=== PATIENT | female | born 1945 | race Caucasian/White ===

== ENCOUNTER 2017-12-30 18:33 | Inpatient (IN) | payer OTHER ==
[~2017-12-30] VITALS: Ht 162.6 cm; Wt 68.2 kg
[2017-12-30 19:11] LABS: ABSOLUTE BASOPHIL COUNT 0 /CUMM (0.0-0.2); ABSOLUTE EOSINOPHIL COUNT 0 /CUMM (0.0-0.7); ABSOLUTE GRANULOCYTE CT 27.2 /CUMM (1.4-6.5); ABSOLUTE MONOCYTE COUNT 0.6 /CUMM (0.10-0.60); BASOPHIL % 0.1 % (0.0-2.0); EOSINOPHIL % 0 % (0-5); GRANULOCYTE % 94.3 % (42.2-75.2); HEMATOCRIT 40.2 % (37-47); MEAN CORPUSCULAR HGB 31.8 PG (27.0-31.0); MEAN CORPUSCULAR HGB CONC 33.1 G/DL (33.0-37.0); MEAN CORPUSCULAR VOLUME 95.9 FL (81.0-99.0); MEAN PLATELET VOLUME 7.6 FL (7.4-10.4); PLATELET COUNT 384 /CUMM (130-400); RBC DISTRIBUTION WIDTH 13.6 % (11.5-14.5); RED BLOOD CELL CT 4.19 /CUMM (4.20-5.40); WHITE BLOOD CELL COUNT 28.8 /CUMM (4.8-10.8)
--- NOTE | 2017-12-30 19:47 | ED GENERAL ADULT ---
History of Present Illness General Chief Complaint: General Adult Stated Complaint: "I THINK IM RUNNING A FEVER" Source: patient Exam Limitations: no limitations Vital Signs & Intake/Output Vital Signs & Intake/Output Vital Signs Date Time Temp Pulse Resp B/P B/P Pulse O2 O2 Flow FiO2 Mean Ox Delivery Rate 12/300 98.1 79 18 94/58 96 Room Air 12/30 2222 98.4 88 16 106/58 97 Room Air 12/30 2206 98.4 12/30 2053 101.1 12/30 2028 99.6 87 18 104/53 98 Room Air 12/30 1853 101.1 98 18 111/67 95 Room Air Room Air ED Intake and Output 12/31 0000 12/30 1200 Intake Total Output Total Balance Patient 150 lb Weight Weight Bed scale Measurement Method Allergies Coded Allergies: azithromycin (From ZITHROMAX Z-GABRIELLE) (Intermediate, DIARRHEA 12/30/17) pseudoephedrine ("LIKE A GIANT DOSE OF CAFFEINE" 12/30/17) Reconcile Medications Carvedilol 6.25 MG TABLET 1 TAB PO BID CHF (Reported) Losartan Potassium 50 MG TABLET 1 TAB PO DAILY HEART FAILURE (Reported) Simvastatin (Simvastatin*) 20 MG TABLET 1 TAB PO QPM HYPERLIPIDEMIA (Reported ) Spironolactone (Aldactone) 25 MG TABLET 0.5 TAB PO DAILY HEART (Reported) Triage Note: TRIAGE: 72 Y/O FEMALE PRESENTS C/O FEVER AT HOME. TEMP IN TRIAGE: 101.1. C/O THRUSH THIS WEEK - USING AN ABX FOR "MY NASAL PASSAGES SO THAT I CAN BREATHE AT BIGHT". Triage Nurses Notes Reviewed? yes Onset: Abrupt Duration: day(s): Timing: recent history Injury Environment: home Severity: moderate Modifying Factors: Improves With: rest. HPI: 72 YO WOMAN chills, nausea, diarrhea x 2 days. "I was shaking all over and couldn't get out of bed all day." She notes diffuse abdominal cramps. She notes that approximately 2 weeks ago she took amoxicillin for a sinus infection. She notes that she has had several watery stools today more than 7. She feels nauseous but is without vomiting. She has no chest pain shortness of breath. Past History Travel History Traveled to [place] past 21 day No Medical History Any Pertinent Medical History? see below for history Neurological: NONE EENT: NONE Cardiovascular: hypertension, hyperlipidemia Respiratory: NONE Gastrointestinal: NONE Hepatic: NONE Renal: NONE Musculoskeletal: NONE Psychiatric: NONE Endocrine: NONE Blood Disorders: NONE Cancer(s): NONE SEED TESTER/Reproductive: NONE Surgical History Surgical History: non-contributory Psychosocial History What is your primary language Italian Tobacco Use: Never used ETOH Use: denies use Illicit Drug Use: denies illicit drug use Family History Hx Contributory? No Review of Systems Review of Systems Constitutional: Denies: see HPI. Physical Exam Physical Exam General Appearance: moderate distress, see below Comments: Review of Systems - except as otherwise noted in HPI Review of Systems Constitutional:no symptoms. EENTM:no symptoms. Respiratory:no symptoms. Cardiovascular:no symptoms. GI:no symptoms. Genitourinary:no symptoms. Musculoskeletal:no symptoms. Skin:no symptoms. Neurological/Psychological:no symptoms. Hematologic/Endocrine:no symptoms. Immunologic/Allergic:no symptoms. All Other Systems: Reviewed and Negative Physical Exam Physical Exam General Appearance: well developed/nourished, no apparent distress Head: atraumatic, normal appearance Eyes: Bilateral: normal appearance. Ears, Nose, Throat: normal pharynx, normal ENT inspection Neck: normal inspection, supple, full range of motion Respiratory: normal breath sounds, chest non-tender, no respiratory distress, quiet respiration, lungs clear Cardiovascular: regular rate/rhythm Gastrointestinal: normal bowel sounds, soft, mild diffuse tenderness to palpation, no organomegaly Back: normal inspection, normal range of motion Extremities: normal inspection, normal capillary refill, normal range of motion, no edema Neurologic/Psych: no motor/sensory deficits, awake, alert, oriented x 3 Skin: intact, normal color, warm/dry Core Measures ACS in differential dx? No CVA/TIA Diagnosis: No Sepsis Present: Yes Sepsis Focused Exam Completed? Yes ED Sepsis Exam Date of Focused Sepsis Exam: 12/31/17 Time of Focused Sepsis Exam: 2200 Sepsis Cardiac Exam: Tachycardia Sepsis Resp Exam: CTA Sepsis Cap Refill Exam: <2 Sec Sepsis Peripheral Pulse Exam: Normal Sepsis Peripheral Pulse Location: Dorsalis Pedis Sepsis Skin Color Exam: Normal for Ethnicity Skin Temp/Moisture Exam: Warm/Dry Progress Differential Diagnoses I considered the following diagnoses in my evaluation of the patient: C. difficile versus gastroenteritis versus other. Patient will switch criteria for sepsis Plan of Care: Orders Procedure Date/time Status Clear Liquid Diet 09/18 B Active Nothing by Mouth 12/31 B Active CBC WITHOUT DIFFERENTIAL 12/31 0600 Active BASIC ELECTROLYTES PLUS BUN&CR 12/31 0600 Active Saline Lock 12/31 0027 Active Pathway - chart 12/31 0027 Active House Staff 12/31 0027 Active VTE Mechanical Prophylaxis 12/31 0027 Active Vital Signs 12/31 0027 Complete MISTAKE 12/31 0027 Active Intake & Output 12/31 0027 Complete Hemoccult 12/31 0027 Active Activity/Ambulation 12/31 0027 Complete Code Status 12/31 0027 Active Clear Liquid Diet 12/30 D Complete Weight 12/30 2242 Complete Vital Signs 12/30 224 Active Teach/Educate 12/30 2241 Active Pain Treatment and Response 12/30 2241 Active Nutritional Intake, Monitor 12/30 2241 Active Isolation 12/30 2241 Active Intake & Output 12/30 2241 Active Patient Care Conference 12/30 2241 Active Activity/Ambulation 12/30 2241 Active Patient Data 12/30 2126 Active Saline Lock 12/31 2115 Active Misc Message 12/31 2115 Active ED Holding Orders 12/31 2115 Active Admit to inpatient 12/30 211 Active Vital Signs 12/30 211 Active Code Status 12/31 2115 Complete CULTURE,STOOL 12/30 2113 Active C.DIFFICILE 12/30 2113 Active Add-on Test (ER Only) 12/30 1948 Active LACTIC ACID 12/30 1903 Complete Add-on Test (ER Only) 12/30 1858 Active EKG 12/30 1858 Active CULTURE,URINE 12/30 185 Active BLOOD CULTURE 12/30 1856 Active URINALYSIS 12/30 1856 Complete TROPONIN LEVEL 12/30 1856 Complete LIPASE 12/30 1856 Complete COMPREHENSIVE METABOLIC PANEL 12/30 1856 Complete CBC WITHOUT DIFFERENTIAL 12/30 1856 Complete AMYLASE 12/30 1856 Complete Intake & Output 12/30 1853 Active Current Medications Sig/Von Start time Last Medication Dose Stop Time Status Admin Atorvastatin Calcium 10 MG 1700 12/31 1700 AC (Lipitor) Enoxaparin Sodium 40 MG DAILY 12/31 0900 AC (Lovenox) Acetaminophen 650 MG Q6P PRN 12/31 0030 AC (Tylenol) Acetaminophen 1,000 MG Q6P PRN 12/31 0030 AC (Ofirmev) Ondansetron HCl 4 MG Q8P PRN 12/31 0030 AC (Zofran) Vancomycin HCl 125 MG Q6 12/31 0030 AC 12/31 0518 Sodium Chloride 1,000 ML ONCE ONE 12/30 2345 AC 12/31 (Normal Saline 0.9%) 12/31 0744 0010 Laboratory Tests 12/30/171941: Urine Color YEL, Urine Clarity CLEAR, Urine pH 6.5, Ur Specific [place] 1.020, Urine Protein TRACE H, Urine Ketones TRACE H, Urine Nitrite NEG, Urine Bilirubin NEG@ICTO, Urine Urobilinogen 0.2, Ur Leukocyte Esterase SMALL H, Ur Microscopic SEDIMENT EXAMINED, Urine RBC RARE, Urine WBC 3-5 H, Ur Epithelial Cells FEW, Urine Bacteria MOD H, Urine Mucus FEW, Urine Hemoglobin NEG, Urine Glucose NEG 12/30/171902: Anion Gap 10, Estimated GFR > 60, BUN/Creatinine Ratio 18.9, Glucose 124 H, Lactic Acid 1.1, Calcium 9.0, Total Bilirubin 0.9, AST 22, ALT 28, Alkaline Phosphatase 82, Troponin I < 0.01, Total Protein 6.9, Albumin 3.9, Globulin 3.0, Albumin/Globulin Ratio 1.3, Amylase 48, Lipase 43, CBC w Diff MAN DIFF ORDERED, RBC 4.19 L, MCV 95.9, MCH 31.8 H, MCHC 33.1, RDW 13.6, MPV 7.6, Gran % 94.3 H , Lymphocytes % 3.5 L, Monocytes % 2.1, Eosinophils % 0, Basophils % 0.1, Absolute Granulocytes 27.2 H, Segmented Neutrophils 82 H, Band Neutrophils 8 H, Absolute Lymphocytes 1.0 L, Lymphocytes 7 L, Monocytes 3, Absolute Monocytes 0.6, Absolute Eosinophils 0, Absolute Basophils 0, Platelet Estimate ADEQUATE, Normocytic RBCs VERIFIED, Normochromic RBCs VERIFIED Microbiology 12/30 2228 STOOL: Clostridium difficile Toxin A & B - RECD 12/30 2228 STOOL: Stool Culture - RECD 12/31 1947 BLOOD: Blood Culture - CAN Cancelled: Cancelled via OE: PER 12/30 1941 URINE ROUT: Urine Culture - RECD 12/30 1902 BLOOD: Blood Culture - RECD Diagnostic Imaging: Viewed by Me: Radiology Read, CT Scan. Discussed w/RAD: Radiology Read, CT Scan. Radiology Impression: PATIENT: ARIELLA CEDILLONIYA Kohler PRESENT AGE: 72 PATIENT ACCOUNT NO: [id number] : 47 LOCATION: [facility] ORDERING PHYSICIAN: Mary ALCANTARA SERVICE DATE: 12/30/17 EXAM TYPE: RAD - XRY-CHEST XRAY, TWO VIEWS EXAMINATION: XR CHEST CLINICAL INFORMATION: Fever. Rule out pneumonia. COMPARISON: None TECHNIQUE: 2 views of the chest were obtained. FINDINGS: No airspace opacities or pleural effusions are seen. The cardiomediastinal silhouette is normal. No acute osseous abnormality is seen. Thoracic kyphosis evident. Surgical clips project over the left upper quadrant of the abdomen. IMPRESSION: Clear lungs. No acute process. DICTATED BY: Federico August MD DATE/TIME DICTATED:12/30/172017 TRAFFIC TECHNICIAN:JUAN MANUEL DATE/TIME TRANSCRIBED:12/30/172017 CONFIDENTIAL, DO NOT COPY WITHOUT APPROPRIATE AUTHORIZATION. <Electronically signed in Other Vendor System> SIGNED BY: Federico August MD 12/30/172021 Initial ED EKG: sinus, no acute changes Departure Departure Disposition: STILL A PATIENT Condition: Stable Clinical Impression Primary Impression: Diarrhea Secondary Impressions: Leukocytosis, Sepsis Referrals: Codey BOLAND,Amber Alcantara (PCP/Family) Departure Forms: Customer Survey General Discharge Information Critical Care Note Critical Care Note Critical Care Time: non-applicable
--- NOTE | 2017-12-30 20:22 | RADIOLOGY REPORT ---
EXAMINATION: XR CHEST CLINICAL INFORMATION: Fever. Rule out pneumonia. COMPARISON: None TECHNIQUE: 2 views of the chest were obtained. FINDINGS: No airspace opacities or pleural effusions are seen. The cardiomediastinal silhouette is normal. No acute osseous abnormality is seen. Thoracic kyphosis evident. Surgical clips project over the left upper quadrant of the abdomen. IMPRESSION: Clear lungs. No acute process.
--- NOTE | 2017-12-30 20:29 | CT SCAN REPORT ---
EXAMINATION: CT ABDOMEN AND PELVIS WITHOUT CONTRAST CLINICAL INFORMATION: Right-sided abdominal pain COMPARISON: None TECHNIQUE: Multidetector volumetric imaging was performed from the superior aspect of the liver through the pubic symphysis. Sagittal and coronal reformatted images were obtained on the technologist's workstation. DLP: 271.70 mGy-cm FINDINGS: LUNG BASES: The visualized lung bases are unremarkable. LIVER, GALLBLADDER, AND BILIARY TREE: The liver is normal in size, shape, and attenuation. No focal hepatic lesion or biliary ductal dilatation is present. The gallbladder is unremarkable with no evidence of radiopaque gallstones, gallbladder wall thickening, or obvious pericholecystic inflammatory changes. PANCREAS: The pancreas is not well seen and may be atrophic. SPLEEN: Status post splenectomy. ADRENAL GLANDS: Unremarkable. KIDNEYS AND URETERS: The kidneys are normal in size, shape, and attenuation. No hydronephrosis, hydroureter, or calculi seen. No perinephric stranding. BLADDER: Decompressed and not well seen. GASTROINTESTINAL TRACT: Much of the colon is decompressed and featureless. The appendix is not seen. There are no specific pericecal inflammatory changes to suggest acute appendicitis. ABDOMINAL WALL: No significant hernia is appreciated. LYMPH NODES: Normal. VASCULAR: Atherosclerosis abdominal aorta without evidence of aneurysm. PELVIC VISCERA: Diffuse enlargement of the uterus. The female pelvis is not well evaluated with CT, especially noncontrast CT. OSSEOUS STRUCTURES: No evidence of acute or suspicious osseous abnormality. Degenerative changes of the spine. IMPRESSION: 1. No evidence of acute abnormality within the abdomen or pelvis. 2. Much of the colon is decompressed which limits evaluation. The colon appears rather featureless. Clinical correlation for possible inflammatory bowel disease is requested. 3. The appendix is not seen but there are no pericecal inflammatory changes to suggest acute appendicitis. 4. Diffuse enlargement of the uterus. The female pelvis is poorly evaluated with CT and clinical correlation is requested with consideration for pelvic ultrasound if appropriate based upon clinical assessment. 5. Splenectomy. 6. The pancreas is not well seen, possibly due to atrophy.
--- NOTE | 2017-12-30 21:29 | History & Physical ---
Augustine Sosa 12/30/172128: General Information and HPI MD Statement: I have seen and personally examined ISHMAEL CEDILLO and documented this H&P. The patient is a 72 year old F who presented with a patient stated chief complaint of [diarrhea with fever & chills]. Source of Information: patient Exam Limitations: no limitations History of Present Illness: 72 year old female with history of non-hodkings lymphoma, HTN, HLD, CHF presents to the ED with diarrhea, fever & chills. The patient had recently been put on a 2-week course of Augmentin for recurrent sinusitis, which she finished approximately one week prior to presentation. She first noticed diarrhea during this recent antibiotic course, but she took a probiotic and it improved. Starting yesterday she noticed recurrence and worsening of her diarrhea, which was described as malodorous, non-bloody, brown and watery. She denied nausea or vomiting. In addition, she was feverish with chills the night prior to admission and felt light-headed the morning before coming to the hospital. She denied recent travel, sick contacts at home, chest pain, shortness of breath, dysuria or hematuria. 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 Denies: diaphoresis, weakness, unexplained weight loss. Cardiovascular: Denies: chest pain, orthopena, palpitations, peripheral edema. Respiratory: Denies: cough, short of breath, sputum production, wheezing. GI: Reports: diarrhea. Denies: abdominal pain, distention, bowel incontinence, melena, nausea, bloody stool, vomiting. Genitourinary: Denies: dysuria, frequency, hematuria. Post Menopausal: Yes Exam & Diagnostic Data Last 24 Hrs of Vital Signs/I&O Vital Signs Date Time Temp Pulse Resp B/P B/P Pulse O2 O2 Flow FiO2 Mean Ox Delivery Rate 12/30 2250 98.1 79 18 94/58 96 Room Air 12/30 2222 98.4 88 16 106/58 97 Room Air 12/30 2206 98.4 12/30 2053 101.1 12/30 2028 99.6 87 18 104/53 98 Room Air 12/30 1853 101.1 98 18 111/67 95 Room Air Room Air Intake & Output 12/31 0800 12/31 0000 12/30 1600 Intake Total Output Total Balance Patient 68.209 kg Weight Weight Bed scale Measurement Method Physical Exam General Appearance Alert, Oriented X3, Cooperative, No Acute Distress Skin No Rashes, No Breakdown, No Significant Lesion Skin Temp/Moisture Exam: Warm/Dry Sepsis Skin Exam (color): Normal for Ethnicity HEENT Atraumatic, Mucous Membr. moist/pink Cardiovascular Regular Rate, Normal S1, Normal S2, No Murmurs Lungs Clear to Auscultation, Normal Air Movement Abdomen Normal Bowel Sounds, Soft, No Tenderness Neurological Normal Speech, Strength at 5/5 X4 Ext, Normal Tone, Sensation Intact Extremities No Clubbing, No Cyanosis, No Edema Sepsis Peripheral Pulse Location: Dorsalis Pedis Sepsis Peripheral Pulse Exam: Bounding Sepsis Cap Refill Exam: <2 Sec Last 24 Hrs of Labs/Damian: Laboratory Tests 12/30/171941: Urine Color YEL, Urine Clarity CLEAR, Urine pH 6.5, Ur Specific [place] 1.020, Urine Protein TRACE H, Urine Ketones TRACE H, Urine Nitrite NEG, Urine Bilirubin NEG@ICTO, Urine Urobilinogen 0.2, Ur Leukocyte Esterase SMALL H, Ur Microscopic SEDIMENT EXAMINED, Urine RBC RARE, Urine WBC 3-5 H, Ur Epithelial Cells FEW, Urine Bacteria MOD H, Urine Mucus FEW, Urine Hemoglobin NEG, Urine Glucose NEG 12/30/17 190: Anion Gap 10, Estimated GFR > 60, BUN/Creatinine Ratio 18.9, Glucose 124 H, Lactic Acid 1.1, Calcium 9.0, Total Bilirubin 0.9, AST 22, ALT 28, Alkaline Phosphatase 82, Troponin I < 0.01, Total Protein 6.9, Albumin 3.9, Globulin 3.0, Albumin/Globulin Ratio 1.3, Amylase 48, Lipase 43, CBC w Diff MAN DIFF ORDERED, RBC 4.19 L, MCV 95.9, MCH 31.8 H, MCHC 33.1, RDW 13.6, MPV 7.6, Gran % 94.3 H , Lymphocytes % 3.5 L, Monocytes % 2.1, Eosinophils % 0, Basophils % 0.1, Absolute Granulocytes 27.2 H, Segmented Neutrophils 82 H, Band Neutrophils 8 H, Absolute Lymphocytes 1.0 L, Lymphocytes 7 L, Monocytes 3, Absolute Monocytes 0.6, Absolute Eosinophils 0, Absolute Basophils 0, Platelet Estimate ADEQUATE, Normocytic RBCs VERIFIED, Normochromic RBCs VERIFIED Microbiology 12/30 2228 STOOL: Clostridium difficile Toxin A & B - RECD 12/30 2228 STOOL: Stool Culture - RECD 12/31 1947 BLOOD: Blood Culture - CAN Cancelled: Cancelled via OE: PER 12/30 1941 URINE ROUT: Urine Culture - RECD 12/30 1902 BLOOD: Blood Culture - RECD Assessment/Plan Assessment: 72 year old female with recent antibiotic use presents with two days of non- bloody diarrhea, chills and fever of 101.1F, with leukocytosis of 28.8. The patient's blood pressure was also noted to be 94/58 upon admission, which is significantly lower than her baseline per the patient. These findings are concerning for a septic presentation, in the clinical context of post-antibiotic diarrhea, clostridium difficile should be suspected. CT abdomen pelvis: Much of the colon is decompressed which limits evaluation. The colon appears rather featureless. Clinical correlation for possible inflammatory bowel disease is requested. Problems: 1. Sepsis 2. Likely C. diff colitis Plan: -Admit the patient to General Medicine -C. diff stool & stool culture -Vancomycin 125mg PO Q6H -Normal Saline IV 125mL/hr Full code Clear liquid diet ALPS & Lovenox DVT ppx As Ranked By This Provider Problem List: 1. C. difficile diarrhea Core Measures/Misc (12/31) Acute Coronary Syndrome ACS Diagnosis: No Congestive Heart Failure Congestive Heart Failure Diagnosis Yes Cerebrovascular Accident CVA/TIA Diagnosis: No VTE (View Protocol) VTE Risk Factors Age>40 No Mechanical VTE Prophylaxis d/t N/A MechProphylax Ordered No VTE Pharm Prophylaxis d/t NA PharmProphylax ordered Sepsis (View protocol) Sepsis Present: Yes If YES complete Sepsis Event Note If YES complete Sepsis Event Note Marcelo Tejada MD 12/31/17 0207: General Information and HPI MD Statement: I have seen and personally examined NGUYENISHMAEL and documented this H&P. The patient is a 72 year old F who presented with a patient stated chief complaint of []. Allergies/Medications Allergies: Coded Allergies: azithromycin (From ZITHROMAX Z-GABRIELLE) (Intermediate, DIARRHEA 12/30/17) pseudoephedrine ("LIKE A GIANT DOSE OF CAFFEINE" 12/30/17) Home Med list Carvedilol 6.25 MG TABLET 1 TAB PO BID CHF (Reported) Losartan Potassium 50 MG TABLET 1 TAB PO DAILY HEART FAILURE (Reported) Simvastatin (Simvastatin*) 20 MG TABLET 1 TAB PO QPM HYPERLIPIDEMIA (Reported ) Spironolactone (Aldactone) 25 MG TABLET 0.5 TAB PO DAILY HEART (Reported) Past History Medical History Cardiovascular: hypertension, hyperlipidemia Past Family/Social History Psychosocial History Smoking Status: Never Smoked ETOH Use: denies use Review of Systems Review of Systems Constitutional: Reports: see HPI. Exam & Diagnostic Data Last 24 Hrs of Vital Signs/I&O Vital Signs Date Time Temp Pulse Resp B/P B/P Pulse O2 O2 Flow FiO2 Mean Ox Delivery Rate 12/30 2250 98.1 79 18 94/58 96 Room Air 12/30 2222 98.4 88 16 106/58 97 Room Air 12/30 2206 98.4 12/30 2053 101.1 12/30 2028 99.6 87 18 104/53 98 Room Air 12/30 1853 101.1 98 18 111/67 95 Room Air Room Air Intake & Output 12/31 0800 12/31 0000 12/30 1600 Intake Total Output Total Balance Patient 150 lb Weight Weight Bed scale Measurement Method Physical Exam General Appearance Alert, Oriented X3, Cooperative, No Acute Distress Skin No Rashes, No Breakdown, No Significant Lesion Skin Temp/Moisture Exam: Warm/Dry Sepsis Skin Exam (color): Normal for Ethnicity HEENT Atraumatic, PERRLA, EOMI Neck Supple, No JVD, No thryomegaly Lymphatic Axillary nl, Cervical nl Cardiovascular Regular Rate, Normal S1, Normal S2, No Murmurs Lungs Clear to Auscultation, Normal Air Movement Abdomen Normal Bowel Sounds, Soft, No Tenderness Sepsis Peripheral Pulse Location: Dorsalis Pedis Sepsis Peripheral Pulse Exam: Normal Sepsis Cap Refill Exam: <2 Sec Last 24 Hrs of Labs/Damian: Laboratory Tests 12/30/171941: Urine Color YEL, Urine Clarity CLEAR, Urine pH 6.5, Ur Specific [place] 1.020, Urine Protein TRACE H, Urine Ketones TRACE H, Urine Nitrite NEG, Urine Bilirubin NEG@ICTO, Urine Urobilinogen 0.2, Ur Leukocyte Esterase SMALL H, Ur Microscopic SEDIMENT EXAMINED, Urine RBC RARE, Urine WBC 3-5 H, Ur Epithelial Cells FEW, Urine Bacteria MOD H, Urine Mucus FEW, Urine Hemoglobin NEG, Urine Glucose NEG 12/30/171902: Anion Gap 10, Estimated GFR > 60, BUN/Creatinine Ratio 18.9, Glucose 124 H, Lactic Acid 1.1, Calcium 9.0, Total Bilirubin 0.9, AST 22, ALT 28, Alkaline Phosphatase 82, Troponin I < 0.01, Total Protein 6.9, Albumin 3.9, Globulin 3.0, Albumin/Globulin Ratio 1.3, Amylase 48, Lipase 43, CBC w Diff MAN DIFF ORDERED, RBC 4.19 L, MCV 95.9, MCH 31.8 H, MCHC 33.1, RDW 13.6, MPV 7.6, Gran % 94.3 H , Lymphocytes % 3.5 L, Monocytes % 2.1, Eosinophils % 0, Basophils % 0.1, Absolute Granulocytes 27.2 H, Segmented Neutrophils 82 H, Band Neutrophils 8 H, Absolute Lymphocytes 1.0 L, Lymphocytes 7 L, Monocytes 3, Absolute Monocytes 0.6, Absolute Eosinophils 0, Absolute Basophils 0, Platelet Estimate ADEQUATE, Normocytic RBCs VERIFIED, Normochromic RBCs VERIFIED Microbiology 12/30 2228 STOOL: Clostridium difficile Toxin A & B - RECD 12/30 2228 STOOL: Stool Culture - RECD 12/31 1947 BLOOD: Blood Culture - CAN Cancelled: Cancelled via OE: PER 12/30 1941 URINE ROUT: Urine Culture - RECD 12/30 1902 BLOOD: Blood Culture - RECD Core Measures/Misc (12/31) Sepsis (View protocol) If YES complete Sepsis Event Note If YES complete Sepsis Event Note Attending MD Review Statement Attending Statement Attending MD Statement: examined this patient, discuss w/resident/PA/WINE STEWARD, agreed w/resident/PA/WINE STEWARD, reviewed EMR data (avail) Attending Assessment/Plan: This patient is a 72 year old female with a significant past medical history for non-Hodgkin lymphoma, HTN, HLD, and CHF who presents to the ED with diarrhea, fever and chills. The patient had recently been treated with a 2-week course of Augmentin for recurrent sinusitis, which she finished approximately one week prior to presentation. She first noticed diarrhea during this recent antibiotic course, but she took a probiotic and it improved. Starting yesterday she noticed recurrence and worsening of her diarrhea, which was described as malodorous, non -bloody, brown and watery. She denied nausea or vomiting. In addition, she was feverish with chills the night prior to admission. Upon evaluation in the emergency department she was found to have a temperature of 101.1, vital signs stable, white blood count elevated to 28.8 (left shift with 8 Bands), slight hyponatremia at 134, chest x-ray without any acute process, and CT scan of the abdomen without contrast did not demonstrate colitis. The patient will be admitted to the hospital for acute diarrheal illness likely secondary to bacterial colitis/C. difficile. The features are suggestive enough to start empiric therapy and will start the patient on oral vancomycin. Gentle hydration and close follow-up. She is a full code. Livier Roberts MD 12/31/17 0216: Core Measures/Misc (12/31) Sepsis (View protocol) If YES complete Sepsis Event Note If YES complete Sepsis Event Note Resident Review Statement Resident Statement: examined this patient, discussed with academic intern, agreed with academic intern, reviewed EMR data (avail), amended to note Other Findings: The patient is a 72-year-old female with past medical history of non-Hodgkin's lymphoma status post splenectomy, hypertension, hyperlipidemia, deviated septum, sinus infections presenting this admission with chief complaint of fever, chills , diarrhea. Patient reports a one-day history of diarrhea. States that one night prior to admission she started experiencing severe chills. Reports on the morning morning of admission she started having loose watery foul-smelling diarrhea with a brownish color. Reports having 5-6 bowel movements over the course of the day until 5 PM when her came home and brought her to the ED. Patient reports 2 more bowel movements since arriving. Denies any melena or bright red blood per rectum. Patient reports associated abdominal tenderness in the lower right and left quadrants. Reports some mild nausea however no vomiting or hematochezia. Reports feeling feverish and in triage patient had a temperature of 101.1. Patient reported some dizziness and lightheadedness. Denies any chest pain, shortness breath, constipation, dysuria/hematuria. Patient has a history of recurrent sinusitis and is planned to undergo surgery to correct her sinuses as well as a deviated septum with her ENT physician. She was recently given a two-week course of Augmentin which she finished approximately one week prior to admission. Reports that while she was taking the antibiotic she started experiencing similar diarrhea however reports that after taking probiotics that resolved. Patient denies any sick contacts, recent travel. Denies eating anything out of the ordinary. Patient lives with her and reports that he is not ill. Patient states that she had a tick bite 3 months prior to this admission however no medications were given at that time. Past medical history and past surgical history as above Social history: Denies smoking, alcohol use, illicit drug use. Lives with her . 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 Allergies/adverse drug side effects: Pseudoephedrine (reports chest pain, palpitations), azithromycin (diarrhea) Patient in the ED received Tylenol 1 g IV 1, Toradol 30 mg IV 1, normal saline per sepsis protocol, Flagyl IV Vitals: MAXIMUM TEMPERATURE 101.1, heart rate 87-98, respiration rate 18, blood pressure 104/53, saturating between 95 and 98% on room air Gen.: Resting comfortably in bed in no acute distress HEENT: Extraocular movements intact, moist mucosal membranes, PERRLA Lungs: Clear to auscultation bilaterally CVS: Regular rate and rhythm, S1 and S2 heart sounds, no murmurs appreciated Abdomen: Soft nontender nondistended, positive bowel sounds Extremities: Pulses palpable, no lower extremity edema, cyanosis, clubbing. Labs and imaging as above Patient is a 72-year-old female with past medical history significant for non- Hodgkin's lymphoma status post splenectomy and recurrent sinus infections with recent antibiotic use presenting with an acute diarrheal illness with leukocytosis and bandemia and findings indicative of clostridium difficile infection. Abd CT did not show colitis however it was done without constrast. Other possibilities include viral gastroenteritis or other bacterial or parasitic infections. Of note patient is immunocompromised in setting of splenectomy which raises concerns for risk of severe infection with encapsulated bacteria such as salmonella. 1. Sepsis secondary to acute diarrheal illness likely Clostridium difficile 2. Mild hyponatremia 3. Chronic conditions: None was consulted, status post splenectomy, hypertension, hyperlipidemia, CHF (last reported ejection fraction per patient is 50%) Plan: - Admit to gen med - Contact isolation precautions - IV fluid hydration - Trend vitals and WBC - Monitor electrolytes and replete as needed - Follow up c.dif toxin and stool cultures - Start PO Vancomycin 125mg q6h for presumed C.dif - If patient's symptoms do not improve may consider repeat CT Abd/Pelvis as previous imaging was done without contrast. Patient reports no allergy/adverse reaction to contrast. - Antihypertensive medications held at this time due to borderline low bp - Continue simvistatin - Diet: Clear liquid diet, advance as tolerated - Code: Full code - DVT PPx: ALPS, Lovenox
[2017-12-30 22:50] VITALS: BP 94/58
--- NOTE | 2017-12-30 23:43 | Sepsis Event Note ---
Sepsis Event Note Severe Sepsis Severe Sepsis Present: No Septic Shock Septic Shock Present: No Event Note Event Note: S- Patient seen in the ED to be admitted to general medicine, she had a fever of 101.1 in triage in the ED, a leukocytosis of 28.8, and borderline hypotensive at 104/53--much lower than the patient's baseline. B- The patient presented with diarrhea, fever & chills after recent antibiotic use, suggesting an infectious diarrhea. The patient also received Flagyl 500mg PO in the ED. A- Based on this patient's fever and leukocytosis in the setting of watery diarrhea and recent antibiotic use, C. diff colitis is a possible source of sepsis. R- Admit the patient to general medicine, begin Normal saline 125mL/hr, begin Vancomycin 125mg PO Q6h, continue to closely monitor the patient's temperature, blood pressure and heart rate, as well as any changes in her diarrhea or abdominal exam. Sepsis Focused Exam Sepsis Cardiac Exam: Regular Rate/Rhythm Sepsis Resp Exam: CTA Sepsis Cap Refill Exam: <2 Sec Sepsis Peripheral Pulse Exam: Bounding Sepsis Peripheral Pulse Location: Dorsalis Pedis Sepsis Skin Exam (color): Normal for Ethnicity Skin Temp/Moisture Exam: Warm/Dry
[2017-12-31] MEDS ORDERED: LOSARTAN POTASS50 M1 PO (00:30)
[2017-12-31] MEDS ORDERED: CARVEDILOL6.25 M1 PO (00:30)
[2017-12-31] MEDS ORDERED: SIMVASTATIN20 M2 PO (00:30)
[2017-12-31] MEDS ORDERED: ALDACTONE25 MG PO (00:31)
--- NOTE | 2017-12-31 07:29 | PN- Housestaff ---
Elke Coronado 12/31/17 0728: Subjective Follow-up For: Severe diarrhea Subjective: Patient was seen and examined at bedside. She states she still has diarrhea every 2 hours and feels much too dehydrated. She reports that the diarrhea is watery and green. The She denies fever, chills, nausea, vomiting. Review of Systems Constitutional: Reports: see HPI. Objective Last 24 Hrs of Vital Signs/I&O Vital Signs Date Time Temp Pulse Resp B/P B/P Pulse O2 O2 Flow FiO2 Mean Ox Delivery Rate 12/30 2250 98.1 79 18 94/58 96 Room Air 12/30 2222 98.4 88 16 106/58 97 Room Air 12/30 2206 98.4 12/30 2054 101.1 12/30 2028 99.6 87 18 104/53 98 Room Air 12/30 1853 101.1 98 18 111/67 95 Room Air Room Air Intake & Output 12/31 1600 12/31 0800 12/31 0000 Intake Total 1240 Output Total 500 Balance 740 Intake, IV 1000 Intake, Oral 240 Number 3 Bowel Movements Output, Stool 500 Patient 150 lb Weight Weight Bed scale Measurement Method Physical Exam General Appearance: Alert, Oriented X3, Cooperative, No Acute Distress Neck: Supple Cardiovascular: Regular Rate, Normal S1, Normal S2 Lungs: Clear to Auscultation Abdomen: Normal Bowel Sounds, Soft, diffuse tenderness all over the abdomen Vascular: Normal Pulses Assessment/Plan Assessment: 72 year old female with recent antibiotic is admitted to the [facility] service with cheif complaint of non-bloody diarrhea, chills and fever of 101.1F, with leukocytosis of 28.8. The patient's blood pressure was also noted to be 94/58 upon admission, which is significantly lower than her baseline per the patient. These findings are concerning for a septic presentation, in the clinical context of post-antibiotic diarrhea, clostridium difficile should be suspected. CT abdomen pelvis: Much of the colon is decompressed which limits evaluation. The colon appears rather featureless. Clinical correlation for possible inflammatory bowel disease is requested. Problems: 1. Sepsis 2. Likely C. diff colitis Plan: 1. WBC: 26.1 at present 2. Patient was afebrile overnight 3. Patient has recent history of Augemntin use 3. C.diff cultures pending, Blood cultures pending, would follow up 4. We would continue treating her with Vancomycin 125mg PO 5. Patient is on clear liquid diet. 6. She does show signs of dehydration. We started her on maintainence fluids @ 75cc/hr. DVT prophylaxis Code status: Full code Problem List: 1. Sepsis 2. Leukocytosis 3. Diarrhea 4. C. difficile diarrhea Pain Ratin Pain Location: diffuse abdominal tenderness Pain Goal: Remain pain free Pain Plan: pathway Tomorrow's Labs & Rationales: cbc and bep Tripp Garrido 12/31/17 1153: Attending MD Review Statement Attending Statement Attending MD Statement: examined this patient, discuss w/resident/PA/[employer] LAYUP LINE CORE LAYER, agreed w/resident/PA/[employer] CORE LAYER, discussed with family, reviewed EMR data (avail), discussed with nursing, discussed with case mgmt, reviewed images, amended to note Attending Assessment/Plan: 72 year old female with a significant past medical history for non-Hodgkin lymphoma, HTN, HLD, and CHF who presents to the ED with diarrhea, fever and chills. The patient had recently been treated with a 2-week course of Augmentin for recurrent sinusitis, which she finished approximately one week prior to presentation. CT abd/pelvis noted. Overnight patient had c/o abdominal pain diffuse 5/10 with lower abdominal tenderness. Still reports loose stools. Hemodynamically stable. BP 106/58. Patient with possible C diff colitis. Start empiric therapy on oral vancomycin. Continue Gentle hydration and close follow-up. She is a full code.
[2017-12-31 08:39] LABS: ABSOLUTE BASOPHIL COUNT 0 /CUMM (0.0-0.2); ABSOLUTE EOSINOPHIL COUNT 0 /CUMM (0.0-0.7); ABSOLUTE GRANULOCYTE CT 23.1 /CUMM (1.4-6.5); ABSOLUTE LYMPH COUNT 1.3 /CUMM (1.2-3.4); ABSOLUTE MONOCYTE COUNT 1.6 /CUMM (0.10-0.60); BASOPHIL % 0.2 % (0.0-2.0); EOSINOPHIL % 0.1 % (0-5); GRANULOCYTE % 88.6 % (42.2-75.2); HEMATOCRIT 35.8 % (37-47); MEAN CORPUSCULAR HGB 32.6 PG (27.0-31.0); MEAN CORPUSCULAR HGB CONC 33.8 G/DL (33.0-37.0); MEAN CORPUSCULAR VOLUME 96.3 FL (81.0-99.0); MEAN PLATELET VOLUME 8.5 FL (7.4-10.4); PLATELET COUNT 313 /CUMM (130-400); RBC DISTRIBUTION WIDTH 13.7 % (11.5-14.5); RED BLOOD CELL CT 3.72 /CUMM (4.20-5.40); WHITE BLOOD CELL COUNT 26.1 /CUMM (4.8-10.8)
[2017-12-31 14:16] VITALS: BP 110/58
[2017-12-31 21:12] VITALS: BP 112/68
[2018-01-01 06:20] VITALS: BP 135/73
--- NOTE | 2018-01-01 07:27 | PN- Housestaff ---
Elke Coronado 01/01/18 0727: Subjective Follow-up For: Diarrhea Subjective: Patient was seen and examined at bedside. 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 She is much improved clinically. However, she continues to have diarrhea every 2 hours. She states that the stool is a little more formed since yesterday. She also states her hands feel swollen since yesterday. Her heart failure medications were being held given her hypotension at presentation. Review of Systems Constitutional: Reports: see HPI. Objective Last 24 Hrs of Vital Signs/I&O Vital Signs Date Time Temp Pulse Resp B/P B/P Pulse O2 O2 Flow FiO2 Mean Ox Delivery Rate 01/01 1121 70 118/74 01/01 0620 98.1 76 18 135/73 97 12/31 2112 98.4 84 18 112/68 96 Room Air 12/31 1416 100.1 84 18 110/58 94 Room Air Intake & Output 01/01 1600 01/01 0800 01/01 0000 Intake Total 240 Output Total Balance 240 Intake, Oral 240 Number 2 2 Bowel Movements Physical Exam General Appearance: Alert, Oriented X3, Cooperative, No Acute Distress Neck: Supple Cardiovascular: Regular Rate, Normal S1, Normal S2, No Murmurs Lungs: Clear to Auscultation Abdomen: Normal Bowel Sounds, Soft, No Tenderness, No Hepatospenomegaly Extremities: No Edema, Normal Pulses Vascular: Normal Pulses Assessment/Plan Assessment: 72 year old female with PMH of CHF recent antibiotic is admitted to the [facility] service with cheif complaint of non-bloody diarrhea, chills and fever of 101.1F , with leukocytosis of 28.8. The patient's blood pressure was also noted to be 94/58 upon admission, which is significantly lower than her baseline per the patient. These findings are concerning for a septic presentation, in the clinical context of post-antibiotic diarrhea, clostridium difficile should be suspected. Her CHF medications were held at the time of admission given her hypotension. She reported that her hands and feet feel "tight" today. CT abdomen pelvis: Much of the colon is decompressed which limits evaluation. The colon appears rather featureless. Clinical correlation for possible inflammatory bowel disease is requested. Problems: 1. Sepsis 2. Likely C. diff colitis Plan: 1. WBC: 18.1 at present 2. Patient was afebrile overnight 3. Patient has recent history of Augemntin use 3. C.diff cultures negative, Blood cultures pending, would follow up 4. We would continue treating her with Vancomycin 125mg PO 5. PCR for C.diff sent. Will follow up on results 6. Diet advanced to full liquids. Patient tolerating well. 7. Fluids discontinued 8. Carvedilol, Spironolactone were re-started given patient is not hypotensive anymore DVT prophylaxis Code status: Full code Problem List: 1. Sepsis 2. Leukocytosis 3. Diarrhea 4. C. difficile diarrhea 5. History of CHF (congestive heart failure) Pain Ratin Pain Location: none Pain Goal: Remain pain free Pain Plan: none Tomorrow's Labs & Rationales: cbc and bep RadhikaManuel majorsissy 01/01/18 1019: Attending MD Review Statement Attending Statement Attending MD Statement: examined this patient, discuss w/resident/PA/DOOR TENDER, agreed w/resident/PA/DOOR TENDER, discussed with family, reviewed EMR data (avail), discussed with nursing, discussed with case mgmt, reviewed images, amended to note Attending Assessment/Plan: 72 year old female with a significant past medical history for non-Hodgkin lymphoma, HTN, HLD, and CHF who presents to the ED with diarrhea, fever and chills. The patient had recently been treated with a 2-week course of Augmentin for recurrent sinusitis, which she finished approximately one week prior to presentation. CT abd/pelvis noted. Overnight patient feels better than admission but still continue to report multiple bowel movements. Hemodynamically stable. leukocytosis with mild improvement. Follow WBC from today. Patient with possible C diff colitis. c/w empiric therapy on oral vancomycin. ID consult. Hyponatremia resolved. H/o CHF cautions use of fluids, resume home meds. Can give diureitcs and b blcoker not appearing in sepsis. gi/dvt prophyalxis full code
[2018-01-01 10:01] LABS: ABSOLUTE BASOPHIL COUNT 0.1 /CUMM (0.0-0.2); ABSOLUTE EOSINOPHIL COUNT 0.1 /CUMM (0.0-0.7); ABSOLUTE GRANULOCYTE CT 13.9 /CUMM (1.4-6.5); ABSOLUTE LYMPH COUNT 2.4 /CUMM (1.2-3.4); ABSOLUTE MONOCYTE COUNT 1.7 /CUMM (0.10-0.60); BASOPHIL % 0.3 % (0.0-2.0); EOSINOPHIL % 0.4 % (0-5); GRANULOCYTE % 76.9 % (42.2-75.2); HEMATOCRIT 33.4 % (37-47); MEAN CORPUSCULAR HGB 32.2 PG (27.0-31.0); MEAN CORPUSCULAR HGB CONC 33.5 G/DL (33.0-37.0); MEAN CORPUSCULAR VOLUME 95.9 FL (81.0-99.0); MEAN PLATELET VOLUME 8.4 FL (7.4-10.4); PLATELET COUNT 297 /CUMM (130-400); RBC DISTRIBUTION WIDTH 13.9 % (11.5-14.5); RED BLOOD CELL CT 3.48 /CUMM (4.20-5.40); WHITE BLOOD CELL COUNT 18.1 /CUMM (4.8-10.8)
[2018-01-01 14:30] VITALS: BP 112/69
--- NOTE | 2018-01-01 15:06 | Cons- Infect Disease ---
General Information and HPI Consulting Request Date of Consult: 01/01/18 Requested By: Tripp Garrido MD Reason for Consult: Rule out C. difficile Source of Information: patient, family History of Present Illness: This is a 72-year-old woman with a history of non-Hodgkin's lymphoma over 30 years prior to admission, status post splenectomy, hypertension and CHF, treated with a 2 week course of Augmentin until 1 week prior to admission for a sinusitis in anticipation of surgery, which is scheduled for several weeks from now, admitted on December 30 with the acute onset of chills, followed by fever up to 104, watery stools, nausea and mild abdominal discomfort. On admission she was febrile to 101.1. Laboratory data revealed a white blood cell count of 29, 000, with 82 segs and 8 bands, BUN/creatinine 17 and 0.9, with normal liver enzymes. Urinalysis rare RBC/3-5 WBCs. Chest x-ray was negative. CT of the abdomen and pelvis without contrast revealed decompression of most of the colon. She was given 1 dose of po Flagyl in the emergency room and was then changed to p.o. Vancomycin. She appears to have defervesced and she feels markedly improved, with no further chills, nausea or abdominal discomfort, and with some improvement in her diarrhea. Her stool C. difficile toxin is negative and a PCR is pending. Allergies/Medications Allergies: Coded Allergies: azithromycin (From ZITHROMAX Z-GABRIELLE) (Intermediate, DIARRHEA 12/30/17) pseudoephedrine ("LIKE A GIANT DOSE OF CAFFEINE" 12/30/17) Home Med List: Carvedilol 6.25 MG TABLET 1 TAB PO BID CHF (Reported) Losartan Potassium 50 MG TABLET 1 TAB PO DAILY HEART FAILURE (Reported) Simvastatin (Simvastatin*) 20 MG TABLET 1 TAB PO QPM HYPERLIPIDEMIA (Reported ) Spironolactone (Aldactone) 25 MG TABLET 0.5 TAB PO DAILY HEART (Reported) Past History Travel History Traveled to [place] past 21 day No Medical History Blood Transfusion Hx: Yes Neurological: NONE EENT: NONE Cardiovascular: CHF, hypertension, hyperlipidemia Respiratory: NONE Gastrointestinal: NONE Hepatic: NONE Renal: NONE Musculoskeletal: NONE Psychiatric: NONE Endocrine: NONE Blood Disorders: NONE Cancer(s): non-hodgkin lymphoma 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 Home Services at Home: None Smoking Status: Never Smoked ETOH Use: denies use Illicit Drug Use: denies illicit drug use Review of Systems Review of Systems All Other Systems: Reviewed and Negative Exam & Diagnostic Data Last 24 Hrs of Vital Signs/I&O Vital Signs Date Time Temp Pulse Resp B/P B/P Pulse O2 O2 Flow FiO2 Mean Ox Delivery Rate 01/01 1430 98.2 73 18 112/69 96 Room Air 01/01 1121 70 118/74 01/01 0620 98.1 76 18 135/73 97 12/31 2112 98.4 84 18 112/68 96 Room Air Intake & Output 01/01 1600 01/01 0800 01/01 0000 Intake Total 770 240 Output Total Balance 770 240 Intake, IV 150 Intake, Oral 620 240 Number 2 2 2 Bowel Movements Physical Exam Other Physical Findings: She is awake and alert in no acute distress. T-max 100.1. Skin reveals no rash. HEENT exam is negative. Neck is supple with no adenopathy. Lungs are clear. Heart regular rhythm with no murmur. Abdomen is soft, mildly tender on palpation diffusely, with no guarding or rebound, with positive bowel sounds. Back no CVA tenderness. Extremities trace edema both lower extremities. Neuro is without focality. Last 24 Hours of Lab Results: Laboratory Tests 01/01 0603 Chemistry Sodium (137 - 145 mmol/L) 137 Potassium (3.5 - 5.1 mmol/L) 3.7 Chloride (98 - 107 mmol/L) 108 H Carbon Dioxide (22 - 30 mmol/L) 20 L Anion Gap (5 - 16) 9 BUN (7 - 17 mg/dL) 9 Creatinine (0.5 - 1.0 mg/dL) 0.8 Estimated GFR (>60 ml/min) > 60 BUN/Creatinine Ratio (7 - 25 %) 11.3 Hematology CBC w Diff MAN DIFF ORDERED WBC (4.8 - 10.8 /CUMM) 18.1 H RBC (4.20 - 5.40 /CUMM) 3.48 L Hgb (12.0 - 16.0 G/DL) 11.2 L Hct (37 - 47 %) 33.4 L MCV (81.0 - 99.0 FL) 95.9 MCH (27.0 - 31.0 PG) 32.2 H MCHC (33.0 - 37.0 G/DL) 33.5 RDW (11.5 - 14.5 %) 13.9 Plt Count (130 - 400 /CUMM) 297 MPV (7.4 - 10.4 FL) 8.4 Gran % (42.2 - 75.2 %) 76.9 H Lymphocytes % (20.5 - 51.1 %) 13.1 L Monocytes % (1.7 - 9.3 %) 9.3 Eosinophils % (0 - 5 %) 0.4 Basophils % (0.0 - 2.0 %) 0.3 Absolute Granulocytes (1.4 - 6.5 /CUMM) 13.9 H Segmented Neutrophils (42.2 - 75.2 %) 68 Band Neutrophils (0.0 - 5.0 %) 7 H Absolute Lymphocytes (1.2 - 3.4 /CUMM) 2.4 Lymphocytes (20.5 - 51.1 %) 17 L Monocytes (1.7 - 9.3 %) 8 Absolute Monocytes (0.10 - 0.60 /CUMM) 1.7 H Absolute Eosinophils (0.0 - 0.7 /CUMM) 0.1 Absolute Basophils (0.0 - 0.2 /CUMM) 0.1 Platelet Estimate (ADEQUATE) VERIFIED BY SMEAR Normocytic RBCs VERIFIED Normochromic RBCs VERIFIED Last 24 Hours of Damian Results: Blood culture 1 December 30 negative Urine culture December 30 negative Stool C. difficile December 30 negative Stool culture December 30 mixed lizzie after 2 days, with Shiga toxins negative Diagnostic Data Recent Imaging Findings: Chest x-ray December [address] of the abdomen and pelvis without contrast December 30 reveals decompression of most of the colon Assessment/Plan Assessment/Plan Impression: This is a 72-year-old woman with a history of non-Hodgkin's lymphoma over 30 years prior to admission, status post splenectomy, recently treated with a 2 week course of Augmentin for a sinusitis in anticipation of surgery, admitted on December 30 with the acute onset of chills, followed by fever up to 104, watery stools, nausea and mild abdominal discomfort, found to be febrile with a marked leukocytosis, treated empirically for C. difficile with clinical improvement but with her C. difficile toxin negative. Her clinical picture is consistent with C. difficile infection. The toxin test has a relatively low sensitivity, which most likely explains the negative result and, given her history of recent antibiotic use and apparent response to p.o. Vancomycin, feel that this is the most likely diagnosis. Her stool has been sent out for PCR and the results are pending. Though this test is not specific for C. difficile, as it only detects the gene that produces the toxin and not the toxin itself, a positive test would be very suggestive of C. difficile in this setting. Of note she is status post splenectomy, which may increase her risk for a relapse of the C. difficile. Suggestion: 1. Await stool PCR for C. difficile 2. Special Contact Isolation pending above 3. Continue Vancomycin 125 mg p.o. every 6 hours pending above Consult Acknowledgment - Thank you for your consult request.
--- NOTE | 2018-01-01 16:20 | Patient Discharge Instructions ---
Discharge Instructions General Discharge Information You were seen/treated for: Diarrhea Special Instructions: 1. Please take the antibiotic according to instructions provided. 2. Please inform your PCP about your admission at [facility] within a week of discharge. Activity Full Activity/No Limits: Yes Acute Coronary Syndrome Inclusion Criteria At DC or during hospital stay patient has or had the following: ACS DIAGNOSIS No Discharge Core Measures Meds if any: Prescribed or Continued at Discharge Meds if any: NOT Prescribed or Continued at Discharge Congestive Heart Failure Inclusion Criteria At DC or during hospital stay patient has or had the following: CHF DIAGNOSIS No Discharge Core Measures Meds if any: Prescribed or Continued at Discharge Meds if any: NOT Prescribed or Continued at Discharge Cerebrovascular accident Inclusion Criteria At DC or during hospital stay patient has or had the following: CVA/TIA Diagnosis No Discharge Core Measures Meds if any: Prescribed or Continued at Discharge Meds if any: NOT Prescribed or Continued at Discharge Venous thromboembolism Inclusion Criteria VTE Diagnosis No VTE Type NONE VTE Confirmed by (Test) NONE Discharge Core Measures - Per Current guidelines, there needs to be overlap - treatment for the first 5 days of Warfarin therapy. - If discharged on Warfarin prior to 5 days of - overlap therapy, the patient will need to be - assessed for post discharge needs including - *Post discharge parental anticoagulation - *Warfarin and/or parental anticoagulation education - *Follow up date to check INR post discharge At least 5 days overlap therapy as Inpatient No Meds if any: Prescribed or Continued at Discharge Note: Overlap Therapy is Warfarin and Anticoagulant Meds if any: NOT Prescribed or Continued at Discharge
[2018-01-02 07:03] VITALS: BP 122/69
--- NOTE | 2018-01-02 07:21 | PN- Housestaff ---
Elke Coronado 01/02/18 0720: Subjective Follow-up For: C.diff colitis Subjective: Patient was seen and examined at bedside. Her diarrhea improved yesterday. However, she has again had five loose stools since morning. Her diet was advanced but she did not think she would be able to tolerate it and therefore had toast for lunch. She denies fever, chills, nausea, vomiting. Review of Systems Constitutional: Reports: see HPI. Objective Last 24 Hrs of Vital Signs/I&O Vital Signs Date Time Temp Pulse Resp B/P B/P Pulse O2 O2 Flow FiO2 Mean Ox Delivery Rate 01/02 1421 98.2 97 18 114/64 97 Room Air 01/02 0942 61 122/69 01/02 0703 98.2 61 18 122/69 98 Room Air 01/01 2243 97.9 01/01 2050 18 100 Room Air 01/01 2048 68 124/78 Intake & Output 01/02 1600 01/02 0800 01/02 0000 Intake Total 610 240 Output Total Balance 610 240 Intake, IV 10 Intake, Oral 600 240 Number 3 0 Bowel Movements Physical Exam General Appearance: Alert, Oriented X3, Cooperative, No Acute Distress Neck: Supple Cardiovascular: Regular Rate, Normal S1, Normal S2, No Murmurs Lungs: Clear to Auscultation Abdomen: Normal Bowel Sounds, Soft, No Tenderness Extremities: No Edema, Normal Pulses Assessment/Plan Assessment: 2 year old female with PMH of suspected systolic CHF (per patient) recent antibiotic is admitted to the [facility] service with cheif complaint of non- bloody diarrhea, chills and fever of 101.1F, with leukocytosis of 28.8. The patient's blood pressure was also noted to be 94/58 upon admission, which is significantly lower than her baseline per the patient. These findings are concerning for a septic presentation, in the clinical context of post-antibiotic diarrhea, clostridium difficile should be suspected. Her CHF medications were held at the time of admission given her hypotension. She reported that her hands and feet feel "tight" today. CT abdomen pelvis: Much of the colon is decompressed which limits evaluation. The colon appears rather featureless. Clinical correlation for possible inflammatory bowel disease is requested. Problems: 1. Sepsis 2. Likely C. diff colitis Plan: 1. WBC: 12.5 at present 2. Patient was afebrile overnight 3. Patient has recent history of Augemntin use 3. C.diff cultures negative, Blood cultures pending, would follow up 4. We would continue treating her with Vancomycin 125mg PO 5. C.diff Tox B gene detected 6. Diet advanced to full liquids. Patient tolerating well. 7. Fluids discontinued 8. Carvedilol, Spironolactone were re-started given patient is not hypotensive anymore DVT prophylaxis Code status: Full code Problem List: 1. History of CHF (congestive heart failure) 2. Sepsis 3. Leukocytosis 4. Diarrhea 5. C. difficile diarrhea Pain Ratin Pain Location: diffuse abdominal pain Pain Goal: Remain pain free Pain Plan: none Tomorrow's Labs & Rationales: cbc RadhikaTripp 01/02/18 1109: Attending MD Review Statement Attending Statement Attending MD Statement: examined this patient, discuss w/resident/PA/PRECIPITATOR, agreed w/resident/PA/PRECIPITATOR, discussed with family, reviewed EMR data (avail), discussed with nursing, discussed with case mgmt, reviewed images, amended to note Attending Assessment/Plan: 72 year old female with a significant past medical history for non-Hodgkin lymphoma, HTN, HLD, and CHF who presents to the ED with diarrhea, fever and chills. The patient had recently been treated with a 2-week course of Augmentin for recurrent sinusitis, which she finished approximately one week prior to presentation. CT abd/pelvis noted. Overnight patient feels much better. Hemodynamically stable. leukocytosis resolving. Patient with possible C diff colitis. c/w empiric therapy on oral vancomycin. ID appreciated. Hyponatremia resolved. H/o CHF cautions use of fluids, c/w home meds. gi/dvt prophyalxis full code Anticipate discharge soon.
[2018-01-02 09:20] LABS: C.DIFFICILE TOXIN B QL PCR DETECTED (NOT DETECTED)
[2018-01-02 09:27] LABS: ABSOLUTE BASOPHIL COUNT 0 /CUMM (0.0-0.2); ABSOLUTE EOSINOPHIL COUNT 0.2 /CUMM (0.0-0.7); ABSOLUTE LYMPH COUNT 2.7 /CUMM (1.2-3.4); ABSOLUTE MONOCYTE COUNT 1.5 /CUMM (0.10-0.60); BASOPHIL % 0.4 % (0.0-2.0); EOSINOPHIL % 1.8 % (0-5); GRANULOCYTE % 64.1 % (42.2-75.2); MEAN CORPUSCULAR HGB 32.4 PG (27.0-31.0); MEAN CORPUSCULAR HGB CONC 33.8 G/DL (33.0-37.0); MEAN CORPUSCULAR VOLUME 95.9 FL (81.0-99.0); MEAN PLATELET VOLUME 8.5 FL (7.4-10.4); PLATELET COUNT 323 /CUMM (130-400); RBC DISTRIBUTION WIDTH 14.3 % (11.5-14.5); RED BLOOD CELL CT 3.55 /CUMM (4.20-5.40); WHITE BLOOD CELL COUNT 12.5 /CUMM (4.8-10.8)
[2018-01-02] MEDS ORDERED: VANCOMYCIN HCL125 MG PO (09:40)
[2018-01-02 14:21] VITALS: BP 114/64
[2018-01-02 22:19] VITALS: BP 130/68
[2018-01-03 06:57] VITALS: BP 148/86
--- NOTE | 2018-01-03 07:24 | PN- Housestaff ---
Elke Coronado 01/03/18 0723: Subjective Follow-up For: C.diff coliitis Subjective: Patient was seen and examined at [facility]. She has not had any episodes of diarrhea since last night. She had grilled chicken and mashed potatoes for dinner last night, which she tolerated well. She says she feels much better and stronger. Review of Systems Constitutional: Reports: see HPI. Objective Last 24 Hrs of Vital Signs/I&O Vital Signs Date Time Temp Pulse Resp B/P B/P Pulse O2 O2 Flow FiO2 Mean Ox Delivery Rate 01/03 0937 146/86 01/03 0657 98.1 65 20 148/86 97 01/02 2219 98.1 68 20 130/68 97 Room Air 01/02 1944 136/74 01/02 1421 98.2 97 18 114/64 97 Room Air Intake & Output 01/03 1600 01/03 0800 01/03 0000 Intake Total 480 480 Output Total Balance 480 480 Intake, Oral 480 480 Patient 150 lb Weight Physical Exam General Appearance: Alert, Oriented X3, Cooperative, No Acute Distress Cardiovascular: Regular Rate, Normal S1, Normal S2, No Murmurs Lungs: Clear to Auscultation Abdomen: Normal Bowel Sounds, Soft, No Tenderness Extremities: No Edema, Normal Pulses Assessment/Plan Assessment: 72 year old female with PMH of suspected systolic CHF (per patient) recent antibiotic is admitted to the Gen [facility] service with cheif complaint of non- bloody diarrhea, chills and fever of 101.1F, with leukocytosis of 28.8. The patient's blood pressure was also noted to be 94/58 upon admission, which is significantly lower than her baseline per the patient. These findings are concerning for a septic presentation, in the clinical context of post-antibiotic diarrhea, clostridium difficile should be suspected. Her CHF medications were held at the time of admission given her hypotension. She reported that her hands and feet feel "tight" today. CT abdomen pelvis: Much of the colon is decompressed which limits evaluation. The colon appears rather featureless. Clinical correlation for possible inflammatory bowel disease is requested. Problems: 1. Sepsis 2. Likely C. diff colitis Plan: 1. WBC: 10.7 at present 2. Patient was afebrile overnight 3. Patient has recent history of Augemntin use 3. C.diff cultures negative, Blood cultures pending, would follow up 4. We would continue treating her with Vancomycin 125mg PO 5. C.diff Tox B gene detected 6. Diet advanced to full liquids. Patient tolerating well. 7. Fluids discontinued 8. Carvedilol, Spironolactone were re-started given patient is not hypotensive anymore Patient would be discharged home on PO Vancomycin 125 to complete a 10 day course of antibiotics. DVT prophylaxis Code status: Full code Problem List: 1. History of CHF (congestive heart failure) 2. Sepsis 3. Leukocytosis 4. C. difficile diarrhea Pain Ratin Pain Location: none Pain Goal: Remain pain free Pain Plan: none Tomorrow's Labs & Rationales: none Tripp Garrido 01/03/18 1013: Attending MD Review Statement Attending Statement Attending MD Statement: examined this patient, discuss w/resident/PA/MARKETING DIRECTOR, agreed w/resident/PA/MARKETING DIRECTOR, discussed with family, reviewed EMR data (avail), discussed with nursing, discussed with case mgmt, reviewed images, amended to note Attending Assessment/Plan: Patient condition significantly improved since admission. Her PCR came back positive for C diff. She is tolerating PO diet with stool consistency improving. She will be on PO vancomycin for total of 2 weeks duration. Patient will be discharged in satisfactroy condition with follow up in 2 weeks with PCP.
[2018-01-03] MEDS ORDERED: VANCOMYCIN HCL125 MG PO ×2 (08:18→10:11)
[2018-01-03 08:30] LABS: ABSOLUTE BASOPHIL COUNT 0.1 /CUMM (0.0-0.2); ABSOLUTE EOSINOPHIL COUNT 0.3 /CUMM (0.0-0.7); ABSOLUTE GRANULOCYTE CT 6.4 /CUMM (1.4-6.5); ABSOLUTE LYMPH COUNT 2.2 /CUMM (1.2-3.4); ABSOLUTE MONOCYTE COUNT 1.7 /CUMM (0.10-0.60); BASOPHIL % 0.7 % (0.0-2.0); EOSINOPHIL % 2.5 % (0-5); GRANULOCYTE % 59.9 % (42.2-75.2); HEMATOCRIT 34.4 % (37-47); MEAN CORPUSCULAR HGB 32.2 PG (27.0-31.0); MEAN CORPUSCULAR HGB CONC 33.5 G/DL (33.0-37.0); MEAN CORPUSCULAR VOLUME 96.2 FL (81.0-99.0); MEAN PLATELET VOLUME 8.4 FL (7.4-10.4); PLATELET COUNT 339 /CUMM (130-400); RBC DISTRIBUTION WIDTH 13.9 % (11.5-14.5); RED BLOOD CELL CT 3.58 /CUMM (4.20-5.40); WHITE BLOOD CELL COUNT 10.7 /CUMM (4.8-10.8)
--- NOTE | 2018-01-03 08:56 | Discharge Summary ---
Hospital Course Allergies: Coded Allergies: azithromycin (From ZITHROMAX Z-GABRIELLE) (Intermediate, DIARRHEA 12/30/17) pseudoephedrine ("LIKE A GIANT DOSE OF CAFFEINE" 12/30/17) Discharge Instructions Medications at Discharge Discharge Medications: Continue taking these medications: Carvedilol (Carvedilol) 6.25 MG TABLET 1 Tablet ORAL TWICE DAILY Comments: Last Taken:01/03/18 Time:9:00AM Losartan Potassium (Losartan Potassium) 50 MG TABLET 1 Tablet ORAL DAILY Comments: NOT GIVEN WHILE IN HOSPITAL Simvastatin (Simvastatin*) 20 MG TABLET 1 Tablet ORAL Every night Comments: Last Taken:01/02/18 Time:4:30PM HAD LIPITOR 10MG AT THAT TIME Spironolactone (Aldactone) 25 MG TABLET 0.5 Tablet ORAL DAILY Comments: Last Taken:01/03/18 Time:9:00AM Start taking the following new medications: Vancomycin HCl (Vancomycin HCl) 125 MG CAPSULE 1 Capsule ORAL EVERY SIX HOURS Qty = 26 No Refills Comments: Last Taken:01/03/18 Time:5:30AM HAD LIQUID DOSE WHILE IN HOSPITAL Attending MD Review Statement Documenting Attending: Tripp Garrido MD Other Findings: Patient condition significantly improved since admission. Her PCR came back positive for C diff. She is tolerating PO diet with stool consistency improving. She will be on PO vancomycin for total of 2 weeks duration. Patient will be discharged in satisfactroy condition with follow up in 2 weeks with PCP.
[2018-01-03 09:37] VITALS: BP 146/86
--- NOTE | 2018-01-03 11:02 | PN- Infect Dx ---
Subjective Subjective: Afebrile. She feels well with her stools now soft. She has no complaints of nausea, vomiting or abdominal pain. Objective Last 24 Hrs of Vital Signs/I&O Vital Signs Date Time Temp Pulse Resp B/P B/P Pulse O2 O2 Flow FiO2 Mean Ox Delivery Rate 01/03 0937 146/86 01/03 0657 98.1 65 20 148/86 97 01/02 2219 98.1 68 20 130/68 97 Room Air 01/02 1944 136/74 01/02 1421 98.2 97 18 114/64 97 Room Air Intake & Output 01/03 1600 01/03 0800 01/03 0000 Intake Total 480 480 Output Total Balance 480 480 Intake, Oral 480 480 Patient 150 lb Weight Physical Exam Other Physical Findings: She appears well in no acute distress Exam unchanged Results Last 24 Hours of Lab Results: Laboratory Tests 01/03 07 Hematology CBC w Diff NO MAN DIFF REQ WBC (4.8 - 10.8 /CUMM) 10.7 RBC (4.20 - 5.40 /CUMM) 3.58 L Hgb (12.0 - 16.0 G/DL) 11.5 L Hct (37 - 47 %) 34.4 L MCV (81.0 - 99.0 FL) 96.2 MCH (27.0 - 31.0 PG) 32.2 H MCHC (33.0 - 37.0 G/DL) 33.5 RDW (11.5 - 14.5 %) 13.9 Plt Count (130 - 400 /CUMM) 339 MPV (7.4 - 10.4 FL) 8.4 Gran % (42.2 - 75.2 %) 59.9 Lymphocytes % (20.5 - 51.1 %) 20.9 Monocytes % (1.7 - 9.3 %) 16.0 H Eosinophils % (0 - 5 %) 2.5 Basophils % (0.0 - 2.0 %) 0.7 Absolute Granulocytes (1.4 - 6.5 /CUMM) 6.4 Absolute Lymphocytes (1.2 - 3.4 /CUMM) 2.2 Absolute Monocytes (0.10 - 0.60 /CUMM) 1.7 H Absolute Eosinophils (0.0 - 0.7 /CUMM) 0.3 Absolute Basophils (0.0 - 0.2 /CUMM) 0.1 Last 24 Hours of Damian Results: Stool C. difficile PCR December 30 positive Blood culture December 30 negative Assessment/Plan ID Impression: Improved, with her temperatures and white blood cell count now normal and with her diarrhea improving, on p.o. Vancomycin, Day 4 of treatment for C. difficile, with her stool C. difficile PCR positive. Suggestion: 1. Continue p.o. Vancomycin for 10 days
== END 2018-01-03 11:00 | DRG 872 ==
LOC: ERH 18:33 → 2NB 21:16 → ERHI 21:16 → ENRESERV 22:14 → ENTRNSPT 22:37 → EDTRNSPT 22:39 → EDTRNSPTSTS 22:39 → 2NB 22:52 → CMPTRNSPT 23:30 → 2NB 12-31 07:30 → ENPENDDIS 01-03 09:40 → 2NB 01-03 11:00
PROVIDERS: Emergency Medicine; Hospitalist; Pediatrics; Student in an Organized Health Care Education/Training Program
DX: A41.9 Sepsis, unspecified organism (principal); A04.72 Enterocolitis due to Clostridium difficile, not specified as recurrent; E87.1 Hypo-osmolality and hyponatremia; I50.22 Chronic systolic (congestive) heart failure; R19.7 Diarrhea, unspecified; E78.5 Hyperlipidemia, unspecified; Z90.81 Acquired absence of spleen; I11.0 Hypertensive heart disease with heart failure; E86.0 Dehydration; I95.9 Hypotension, unspecified; Z88.1 Allergy status to other antibiotic agents; Z88.8 Allergy status to other drugs, medicaments and biological substances
CPT/HCPCS: 2NBP; 87493; 36592; 71046; 74176; 81001; 82436; 87015; 87040; 87045; 87086; 87899; 87899-59; 93005; 93010; 96374; 96375; 99291; J0131; J1650; J1885